=== PATIENT | female | born 1945 ===

== ENCOUNTER 2024-03-05 23:05 | Emergency (ER) | payer MEDICARE, SELFPAY ==
--- NOTE | ~2024-03-05 | CT_ITS ---
EXAMINATION: CT brain wo con DATE: 03/05/2024 23:51 INDICATION: Head injury. TECHNIQUE: Computed tomography (CT) of the head was performed without intravenous contrast. The mA wa s adjusted according to patient size. Iterative reconstruction technique was employed. The dose-lengt h product was 681.00 mGy-cm. COMPARISON: None FINDINGS: There are scattered areas of low attenuation in the cerebral white matter. There is no intr acranial hemorrhage, acute infarction, or abnormal intracranial mass lesion. The ventricles are vivek l in size. There is mild mucosal thickening in the ethmoid sinuses. There are likely changes of ocula r lens replacement surgeries. The mastoid air cells are normal. IMPRESSION: 1. Moderate nonspecific cerebral white matter disease, which likely represents chronic small vessel i schemic disease. Reviewed, dictated and finalized at location A. [employer] ASSURANCE ANALYST IMPRESSION: 1. Moderate nonspecific cerebral white matter disease, which likely represents chronic small vessel ischemic disease.
[2024-03-05 23:14] VITALS: BP 145/76; PULSE 94; RESP 15; TEMP 36.3; O2SAT 99
[2024-03-05 23:15] LABS: Glucose Point of Care 170 mg/dl (65-105)
[2024-03-05 23:46] VITALS: O2SAT 99
--- NOTE | 2024-03-06 00:33 | ED.HEATRA ---
HPI - Head Injury General Chief complaint: Head Injury Stated complaint: fall; hit head on concreate; 81mg aspirin; No LOC Time Seen by Provider: 03/05/24 23:32 History of Present Illness HPI Narrative: Patient is a 78-year-old female who presents to the emergency this even after a ground level fall. Patient states that she tripped over her dog and fell forward hitting the right side of her head on the ground. Patient denies any loss of consciousness. Admits that she takes a baby aspirin but denies any blood thinner use. Patient states that she sat there for a while but then was able to get back up by herself. She is currently moving all 4 extremities spontaneously and is denying any symptoms including headaches, dizziness, blurry visions, focal weakness, numbness and tingling. It denies any chest pain or shortness of breath. No additional symptoms or concerns at this time. Review of Systems Review of Systems: All systems are reviewed and are negative unless stated otherwise in the HPI. Exam Narrative: General: Alert, awake, afebrile, in no acute distress. HEENT: PERRL, no rhinorrhea, no post nasal drip, oropharynx clear, small 1 cm hematoma to the right forehead. Neck: Trachea midline, no JVD, no lymphadenopathy. Cardiovascular: Regular rate and rhythm, no murmurs, rubs or gallops, no peripheral edema. Respiratory: Clear to auscultation bilaterally, no tachypnea, no wheezing, no rhonchi, no rubs, no respiratory distress. Abdomen: Soft, nontender, nondistended, no rebound, no guarding, no peritoneal signs. Musculoskeletal: No joint swelling or deformity, normal muscle tone. Skin: No rashes or petechia, no signs of infection. Psychiatric: Alert and oriented, normal behavior and judgment for situation. Neurological: Alert and oriented to person, place, and time. Follows all commands. 5/5 motor strength in the bilateral upper and lower extremity, sensation intact equal in the bilateral upper and lower extremity, cranial nerves 2-12 grossly intact. No focal deficits, speech is clear and fluent. Course Vital Signs Vital signs: Vital Signs Temperature 97.3 F L 03/05/24 23:14 Pulse Rate 94 03/05/24 23:14 Respiratory Rate 15 03/05/24 23:14 Blood Pressure 145/76 H 03/05/24 23:14 Pulse Oximetry 99 03/05/24 23:14 Oxygen Delivery Room Air 03/05/24 23:14 Temperature 97.3 F L 03/05/24 23:14 Pulse Rate 94 03/05/24 23:14 Respiratory Rate 15 03/05/24 23:14 Blood Pressure 145/76 H 03/05/24 23:14 Pulse Oximetry 99 03/05/24 23:46 Oxygen Delivery Room Air 03/05/24 23:46 MDM - Head Injury MDM Narrative Medical decision making narrative: The patient was evaluated by myself in the emergency department. History is obtained from patient who is an independent historian and physical exam was performed. External medical records were reviewed at this time. Patient was administered oral Tylenol 650 mg. Imaging studies obtained included CT brain without IV contrast which was independently interpreted by me revealing no acute process, which is pending final radiology interpretation. Differential diagnosis considerations include fractures, dislocations, intracranial hemorrhage. Comorbidities impacting this visit include none. I have evaluated and discussed social determinants of health with the patient that could potentially impact subsequent diagnosis and treatment plans. On repeat assessment of the patient, reevaluation revealed that the patient is doing well and is in no acute distress. Patient symptoms have improved since she arrived to our emergency department. Repeat vital signs were all reviewed and noted to be stable. Differential diagnosis and treatment plan were discussed with the patient at bedside. Patient agrees with discussion and after shared medical decision making agrees with discharge. All questions were answered to the patient's satisfaction. Patient will follow up with her PCP in 3-5 days. Patient was provided with strict return precautions and instructed to return to the emergency department if any new or worsening symptoms develop. The patient was discharged in stable condition. Lab Data Labs: Lab Results 03/05/24 Range/Units 23:13 POC Capillary Glucose 170 H (65-105) mg/dl Discharge Plan Discharge Clinical Impression: Closed head injury, Fall from ground level Patient Disposition: Home, Self-Care Condition: Improved Instructions: Antibiotic Form, Fall Prevention for Older Adults (ED), Head Injury (ED) Additional Instructions: Please follow-up with your family doctor within the next 3-5 days. Return to the emergency department if any new or worsening symptoms develop. Follow-up/Referrals: Elvia,Edil Bailey MD [Primary Care Provider] - 3 Days Time of Disposition: 00:34
[2024-03-06 01:25] VITALS: BP 128/71; PULSE 84; RESP 16; O2SAT 98
== END 2024-03-06 01:26 | disposition home or self-care (01) ==
PROVIDERS: Emergency Provider Emergency Medicine; PCP Internal Medicine
DX: S00.83XA Contusion of other part of head, initial encounter (principal); Z79.82 Long term (current) use of aspirin; R90.82 White matter disease, unspecified; W01.0XXA Fall on same level from slipping, tripping and stumbling without subsequent striking against object, initial encounter
CPT/HCPCS: 70450; 82948; 99284